=== PATIENT | male | born 1995 | race Caucasian/White ===

== ENCOUNTER 2024-09-05 09:24 | Emergency (ER) | payer BC, MEDICAID ==
[2024-09-05] MEDS: Orphenadrine 60 MG/2 ML Inj IV ONE (11:03)
[2024-09-05 11:17] LABS: HEMATOCRIT 47.8 % (40.0-54.0); HEMOGLOBIN 16.5 g/dL (14.0-18.0); MEAN CORPUSCULAR HEMOGLOBIN 31.6 pg (27.0-34.0); MEAN CORPUSCULAR HGB CONC 34.5 g/dL (33.0-35.0); MEAN CORPUSCULAR VOLUME 91.6 fL (80-100); PLATELET COUNT,PLT 229 10^3/uL (150-450); RED BLOOD CELL COUNT 5.22 10^6/uL (4.6-6.2); WHITE BLOOD CELL COUNT,WBC 8.6 10^3/uL (5.0-10.0)
[2024-09-05 11:20] LABS: BASOPHILS PERCENT AUTO 0.5 % (0.0-1.0); EOSINOPHILS PERCENT AUTO 2.9 % (1.0-3.0); NEUTROPHILS PERCENT AUTO 58.6 % (42.2-75.2)
[2024-09-05 11:30] LABS: A/G RATIO 1.4; ALBUMIN 4.2 g/dL (3.4-5.0); ANION GAP 13.5 mEq/L (7-13); BILIRUBIN TOTAL 0.3 mg/dL (0.2-1.0); CALCIUM 9.1 mg/dL (8.5-10.1); EST CRCL DRUG DOSING (CG) 104.66 mL/min; MAGNESIUM 1.9 mg/dL (1.8-2.4); POTASSIUM,K 4.5 mmol/L (3.5-5.1); PROTEIN TOTAL,TP 7.3 g/dL (6.4-8.2)
[2024-09-05 11:34] LABS: BAND PERCENT MAN 2 %; EOSINOPHILS PERCENT MAN 5 % (1-3); LYMPHOCYTES PERCENT MAN 25 % (20-50); MONOCYTES PERCENT MAN 8 % (2-8); SEG NEUTROPHILS PERCENT MAN 60 % (42-75)
[2024-09-05] MEDS: Dexamethasone 4 MG/ML SDV IM ONE (12:24)
[2024-09-05 12:30] VITALS: BP 124/75; PULSE 84
== END 2024-09-05 12:43 | disposition home or self-care (01) ==
LOC: DL.ED 09:24
DX: M50.33 Other cervical disc degeneration, cervicothoracic region (principal); J45.909 Unspecified asthma, uncomplicated; F17.210 Nicotine dependence, cigarettes, uncomplicated; Z86.16 Personal history of COVID-19; Z79.899 Other long term (current) drug therapy
CPT/HCPCS: 36415; 72125; 72128; 80053; 82550; 83735; 85025; 96372; 96374; 99284; 99284-25; J1100; J2360